=== PATIENT | male | born 1950 | race African-American/Black ===

== ENCOUNTER 2019-04-28 22:12 | Emergency (ER) | payer MEDICARE, OTHER ==
--- NOTE | 2019-04-28 23:18 | ER Document Report ---
ED General - General Chief Complaint: Inability to Void Stated Complaint: UNABLE TO URINATE Time Seen by Provider: 04/28/19 23:16 - HPI Notes: Patient is a 69-year-old male presents emergency department for evaluation. He has a history of BPH. He is only had a dribbling urine stream all day. He states he has not emptied his bladder in 24 hours. Denies any fevers or chills. No nausea or vomiting. He just has pressure in his lower pelvis. He is been taking his medication as prescribed. He does have a urologist. - Related Data Allergies/Adverse Reactions: No Known Allergies Allergy (Unverified 04/28/19 22:23) Home Medications: Flomax Past Medical History - General Information source: Patient - Social History Smoking Status: Never Smoker Family History: Reviewed & Not Pertinent Patient has suicidal ideation: No Patient has homicidal ideation: No Renal/ Medical History: Reports: Hx Benign Prostatic Hyperplasia Review of Systems - Review of Systems Constitutional: No symptoms reported EENT: No symptoms reported Cardiovascular: No symptoms reported Respiratory: No symptoms reported Gastrointestinal: No symptoms reported Genitourinary: See HPI Male Genitourinary: No symptoms reported Musculoskeletal: No symptoms reported Skin: No symptoms reported Neurological/Psychological: No symptoms reported Physical Exam - Vital signs Vitals: Temp Pulse Resp BP Pulse Ox 98.0 F 112 H 18 184/101 H 97 04/28/19 22:17 04/28/19 22:17 04/28/19 22:17 04/28/19 22:17 04/28/19 22:17 - Notes Notes: Is a very pleasant 69-year-old male who appears stated age. He is visibly uncomfortable, pacing around the room. Vital signs reviewed, please refer to chart. Head is normocephalic, atraumatic. Pupils equal round, reactive to light. Neck is supple without meningismus. Heart is regular rate and rhythm. Lungs are clear to auscultation bilaterally. Abdomen reveals significant suprapubic fullness and tenderness, normoactive bowel sounds throughout. No CVA tenderness. extremities without cyanosis, clubbing. Posterior calves are nontender. Peripheral pulses are equal. Skin is warm and dry. Patient is awake, alert, neurological exam is nonfocal. Course - Re-evaluation Re-evalutation: 04/28/19 23:17 Patient presents emergency department for evaluation. It is clear by exam he has urinary retention. Burnett catheter ordered, we will continue to monitor. 04/29/19 00:36 Patient had Burnett catheter placed without difficulty. He had over 800 cc of c lear urine drained. Patient is feeling improved. He already has urological follow-up. We will discharge him with a Burnett leg bag and close follow-up. He is to return to the ED with worsening. - Vital Signs Vital signs: Temp Pulse Resp BP Pulse Ox 97.6 F 92 20 135/74 H 94 04/29/19 00:06 04/29/19 00:06 04/29/19 00:06 04/29/19 00:06 04/29/19 00:06 Discharge - Discharge Clinical Impression: Acute urinary retention Condition: Stable Disposition: HOME, SELF-CARE Instructions: Urinary Retention (OM), Burnett Catheter Care ([facility]) Additional Instructions: Follow-up with your urologist on Tuesday. Maintain Burnett catheter care as instructed. Return to the ED with worsening or new concerning symptoms of any sort.
[2019-04-29 00:11] VITALS: BP 135/74
== END 2019-04-29 00:44 | disposition home or self-care (01) ==
LOC: ER 22:12
DX: R33.9 Retention of urine, unspecified (principal)